=== PATIENT | female | born 1985 | race Caucasian/White ===

== ENCOUNTER → 2020-02-08 | Outpatient (CLI) | payer OTHER | LOC: LAB 13:38 | PROVIDERS: ATTEND Family Medicine | DX: U07.1 COVID-19 (principal) ==

== ENCOUNTER → 2020-03-19 | Outpatient (CLI) | payer OTHER | LOC: MRI 08:29 | PROVIDERS: ATTEND Orthopaedic Surgery Sports Medicine | DX: M79.4 Hypertrophy of (infrapatellar) fat pad (principal); G89.29 Other chronic pain; M25.862 Other specified joint disorders, left knee; M53.80 Other specified dorsopathies, site unspecified; Z98.890 Other specified postprocedural states ==

== ENCOUNTER → 2020-04-25 | Outpatient (CLI) | payer OTHER | LOC: RAD 09:54 | PROVIDERS: ATTEND Podiatrist Foot & Ankle Surgery | DX: M79.672 Pain in left foot (principal) ==

== ENCOUNTER → 2020-05-03 | Outpatient (CLI) | payer OTHER ==
[2020-05-03 09:15] LABS: HEMOGLOBIN 12.6 gm/dL (12.0-15.0); WBC 9.1 thou/uL (4.0-11.0)
[2020-05-03 09:17] LABS: ABSOLUTE NEUTROPHILS 5.8 thou/uL (1.4-8.2); EOSINOPHILS 1.8 % (0.0-3.0); HEMATOCRIT 38.2 % (37.0-47.0); LYMPHOCYTES 22.7 % (24.0-44.0); MCHC 32.9 g/dL (28.0-37.0); MCV 85.1 fL (80.0-100.0); PLATELET COUNT 378 thou/uL (150-400); POLYS 63.5 % (36.0-66.0); RBC 4.49 mil/uL (4.20-5.00); RDW 14.5 % (10.5-14.5)
[2020-05-03 09:33] LABS: ALBUMIN 3.9 g/dL (3.4-5.0); CALCIUM 8.9 mg/dL (8.5-10.1); CREATININE 0.8 mg/dL (0.6-1.0); TOTAL BILIRUBIN 0.3 mg/dL (0.2-1.0); TOTAL PROTEIN 7.7 g/dL (6.4-8.2)
== END ==
LOC: LAB 08:44
PROVIDERS: ATTEND Dermatology
DX: L40.8 Other psoriasis (principal)

== ENCOUNTER → 2020-09-12 | Outpatient (CLI) | payer OTHER ==
[2020-09-12 09:01] LABS: ABSOLUTE NEUTROPHILS 5.2 thou/uL (1.4-8.2); BASOPHILS 0.1 % (0.0-2.0); EOSINOPHILS 2.5 % (0.0-3.0); HEMATOCRIT 36.8 % (37.0-47.0); LYMPHOCYTES 27.3 % (24.0-44.0); MCH 27.4 pg (26.0-34.0); MCHC 32.6 g/dL (28.0-37.0); MCV 83.9 fL (80.0-100.0); MONOCYTES 10.6 % (1.0-8.0); PLATELET COUNT 445 thou/uL (150-400); POLYS 59.5 % (36.0-66.0); RBC 4.39 mil/uL (4.20-5.00); RDW 14.6 % (10.5-14.5); WBC 8.8 thou/uL (4.0-11.0)
[2020-09-12 09:20] LABS: ALBUMIN 3.9 g/dL (3.4-5.0); CALCIUM 9.1 mg/dL (8.5-10.1); CREATININE 0.8 mg/dL (0.6-1.0); POTASSIUM 3.8 mmol/L (3.5-5.1); TOTAL BILIRUBIN 0.2 mg/dL (0.2-1.0); TOTAL PROTEIN 7.7 g/dL (6.4-8.2)
[2020-09-13 07:09] LABS: HAV IgM AB (ANTI-HAV IgM) Negative (Negative); HEPATITIS B SURFACE AG Negative (Negative); HEPATITIS C VIRUS AB <0.1 (0.0-0.9)
== END ==
LOC: LAB 07:45
PROVIDERS: ATTEND Dermatology
DX: L40.8 Other psoriasis (principal)

== ENCOUNTER → 2021-01-31 | Outpatient (CLI) | payer OTHER ==
[2021-01-31 10:15] LABS: ABSOLUTE NEUTROPHILS 5.7 thou/uL (1.4-8.2); BASOPHILS 0.1 % (0.0-2.0); EOSINOPHILS 3.1 % (0.0-3.0); HEMATOCRIT 34.4 % (37.0-47.0); HEMOGLOBIN 11.2 gm/dL (12.0-15.0); LYMPHOCYTES 27.5 % (24.0-44.0); MCH 27.2 pg (26.0-34.0); MCHC 32.7 g/dL (28.0-37.0); MCV 83.2 fL (80.0-100.0); MONOCYTES 10.3 % (1.0-8.0); PLATELET COUNT 409 thou/uL (150-400); RBC 4.13 mil/uL (4.20-5.00); RDW 14.8 % (10.5-14.5); WBC 9.6 thou/uL (4.0-11.0)
== END ==
LOC: LAB 09:47
PROVIDERS: ATTEND Nurse Practitioner
DX: E03.9 Hypothyroidism, unspecified (principal); R53.83 Other fatigue

== ENCOUNTER → 2021-02-26 | Outpatient (CLI) | payer OTHER ==
[2021-02-26 15:35] LABS: URINE BILIRUBIN NEGATIVE (Negative); URINE BLOOD NEGATIVE (Negative); URINE CLARITY CLEAR; URINE COLOR YELLOW; URINE GLUCOSE-RANDOM* NEGATIVE (Negative); URINE KETONES TRACE (Negative); URINE LEUKOCYTES-REFLEX NEGATIVE (Negative); URINE NITRITE-REFLEX NEGATIVE (Negative); URINE PROTEIN (DIPSTICK) NEGATIVE (Negative); URINE SPECIFIC GRAVITY 1.025 (1.005-1.035)
[2021-02-26 16:10] LABS: ALBUMIN 3.6 g/dL (3.4-5.0); ANION GAP 9 mmol/L (7-16); BUN 10 mg/dL (7-18); CALCIUM 8.2 mg/dL (8.5-10.1); CHLORIDE 105 mmol/L (98-107); CHOLESTEROL 147 mg/dL (<200); CO2 26 mmol/L (21-32); CREATININE 0.9 mg/dL (0.6-1.0); GLUCOSE 93 mg/dL (74-106); HDL CHOLESTEROL 40 mg/dL (>40); LDL CHOLESTEROL 86 mg/dL (<100); POTASSIUM 4.6 mmol/L (3.5-5.1); SGOT 18 U/L (15-37); SGPT 28 U/L (30-65); SODIUM 140 mmol/L (136-145); TC:HDL 3.7 Ratio (Not establshd); TOTAL BILIRUBIN 0.3 mg/dL (0.2-1.0); TOTAL PROTEIN 7.2 g/dL (6.4-8.2); TRIGLYCERIDE 106 mg/dL (<150); VLDL 21 mg/dL (<40)
== END ==
LOC: LAB 14:48
PROVIDERS: ATTEND Family Medicine
DX: Z00.00 Encounter for general adult medical examination without abnormal findings (principal); F41.9 Anxiety disorder, unspecified; F32.9 Major depressive disorder, single episode, unspecified; R53.83 Other fatigue